=== PATIENT | female | born 1995 | race Caucasian/White ===

== ENCOUNTER 2024-08-14 00:49 | Outpatient (CLI) | payer BC, SELFPAY ==
--- NOTE | 2024-08-14 | DI.RAD_ITS ---
Exam(s) XR SHOULDER RT COMPLETE 2+V EXAM: XR SHOULDER RT COMPLETE 2+V CLINICAL HISTORY: Rt anterior shoulder pain x 2-3 mos, no improvement w/passive care, M25.511. TECHNIQUE: 2D digital imaging was performed. COMPARISON: No exams were available for comparison FINDINGS: Five views No evidence of fracture or dislocation or abnormal soft tissue calcifications. Subacromial space gabrielle ears unremarkable. Bone density is normal. No osseous lesions there are no degenerative changes in the glenohumeral and AC joints and the ipsilateral clavicle appears unremarkable. Coracoid process u nremarkable. IMPRESSION: No significant osseous findings in the right shoulder. DATA REPOSITORY: RADIATION DOSE DELIVERED:
== END 2024-08-14 01:09 ==
PROVIDERS: Visit Provider Chiropractor
DX: M25.511 Pain in right shoulder (principal)
CPT/HCPCS: 73030